=== PATIENT | female | born 1985 | race Caucasian/White ===

== ENCOUNTER 2017-06-29 09:15 | Emergency (ER) | payer OTHER ==
[~2017-06-29] VITALS: Ht 170.1 cm; Wt 86.2 kg
[~2017-06-29 09:15] MED LIST: ANTIVERT/2525 M1 PO; AUGMENTIN 875875 MG PO; CIPRO500 MG PO; DAILY VALUE1 EACH PO; DILANTIN; ESTRADIOL1 MG PO; FERREX 150150 MG PO; FERROUS SULFAT324 M1 PO; KEFLEX500 MG PO; Meclizine25 MG PO; PREDNISONE10 MG PO; SPRINTEC 35 MCG1 TA1 PO
[2017-06-29 10:03] LABS: BASO # 0.1 10*3/uL (0.0-0.1); BASO % 0.6 % (0.0-1.0); EOS # 0.1 10*3/uL (0.0-0.4); HEMATOCRIT 36.3 % (37.0-47.0); HEMOGLOBIN 12.2 g/dl (12.0-16.0); LYMPH # 1.6 10*3/uL (1.3-4.4); LYMPH % 19.8 % (27.0-41.0); MEAN CELL VOLUME 89.2 fl (81.0-99.0); MEAN CORPUSCULAR HGB CONC 33.6 g/dl (33.0-37.0); MEAN PLATELET VOLUME 11.5 fl (9.6-12.3); MONO # 0.4 10*3/uL (0.1-1.0); MONO % 4.7 % (3.0-9.0); NEUT # 6.1 10*3/uL (2.3-7.9); NEUT % 73.5 % (47.0-73.0); PLATELET COUNT AUTOMATED 294 10*3/uL (130-400); RED BLOOD COUNT 4.07 10*6/uL (4.10-5.10); RED CELL DISTRI WIDTH 12.4 % (0-14.5); WHITE BLOOD COUNT 8.3 10*3/uL (4.8-10.8)
[2017-06-29 10:19] LABS: ALBUMIN 3.3 gm/dl (3.1-4.5); ALKALINE PHOSPHATASE 55 U/L (45-117); BUN 15 mg/dl (7-24); CHLORIDE 107 mmol/L (98-107); CREATININE 0.85 mg/dL (0.55-1.02); POTASSIUM 3.4 mmol/L (3.5-5.1); SGOT/AST 11 IU/L (3-35); SGPT/ALT 17 U/L (12-78); SODIUM 141 mmol/L (136-145); TOTAL PROTEIN 7.1 gm/dL (6.4-8.2)
[2017-06-29] MEDS ORDERED: MECLIZINE HCL25 M2 PO (11:42)
[2017-06-29] MEDS ORDERED: ZOFRAN4 MG PO (11:42)
== END 2017-06-29 12:25 | disposition home or self-care (01) ==
LOC: ED 09:15
PROVIDERS: Nurse Practitioner Family
DX: R42 Dizziness and giddiness (principal); R03.0 Elevated blood-pressure reading, without diagnosis of hypertension; Z98.890 Other specified postprocedural states; Z79.899 Other long term (current) drug therapy

== ENCOUNTER 2018-06-17 13:54 | Emergency (ER) | payer OTHER ==
[~2018-06-17] VITALS: Ht 170.1 cm; Wt 90.7 kg
[~2018-06-17 13:54] MED LIST changes: +MECLIZINE HCL25 M2 PO; +ZOFRAN4 MG PO
[2018-06-17] MEDS ORDERED: MEDROL DOSEPAK4 MG PO (14:14)
== END 2018-06-17 14:22 | disposition home or self-care (01) ==
LOC: ED 13:54
DX: R21 Rash and other nonspecific skin eruption (principal); L29.9 Pruritus, unspecified

== ENCOUNTER 2020-09-05 11:58 | Emergency (ER) | payer OTHER ==
[~2020-09-05 11:58] MED LIST changes: +MEDROL DOSEPAK4 MG PO
[2020-09-05 12:44] LABS: BASO % 0.2 % (0.0-1.0); HEMATOCRIT 41.4 % (37.0-47.0); LYMPH # 0.7 10*3/uL (1.3-4.4); LYMPH % 16.7 % (27.0-41.0); MEAN CORPUSCULAR HGB 28.6 pg (27.0-31.0); MEAN CORPUSCULAR HGB CONC 32.9 g/dl (33.0-37.0); MEAN PLATELET VOLUME 10.6 fl (9.6-12.3); MONO # 0.3 10*3/uL (0.1-1.0); MONO % 7.7 % (3.0-9.0); NEUT # 3.3 10*3/uL (2.3-7.9); NEUT % 75.2 % (47.0-73.0); PLATELET COUNT AUTOMATED 275 10*3/uL (130-400); RED BLOOD COUNT 4.76 10*6/uL (4.10-5.10); RED CELL DISTRI WIDTH 12.5 % (0-14.5); WHITE BLOOD COUNT 4.4 10*3/uL (4.8-10.8)
[2020-09-05 12:59] LABS: ALKALINE PHOSPHATASE 63 U/L (45-117); BUN 10 mg/dl (7-24); CHLORIDE 108 mmol/L (98-107); CREATININE 0.78 mg/dL (0.55-1.02); POTASSIUM 3.7 mmol/L (3.5-5.1); SGOT/AST 25 IU/L (3-35); SGPT/ALT 28 U/L (12-78); SODIUM 136 mmol/L (136-145); TOTAL PROTEIN 7.7 gm/dL (6.4-8.2)
== END 2020-09-05 13:45 | disposition home or self-care (01) ==
LOC: ED 11:58
PROVIDERS: Student in an Organized Health Care Education/Training Program
DX: U07.1 COVID-19 (principal); R11.2 Nausea with vomiting, unspecified; R19.7 Diarrhea, unspecified; J45.909 Unspecified asthma, uncomplicated; Z79.899 Other long term (current) drug therapy

== ENCOUNTER → 2021-07-07 | Outpatient (CLI) | payer OTHER | END | disposition home or self-care (01) | LOC: RAD 13:21 | PROVIDERS: ATTEND Family Medicine | DX: R05.8 Other specified cough (principal) ==

== ENCOUNTER 2022-12-12 10:28 | Emergency (ER) | payer OTHER ==
[2022-12-12] MEDS ORDERED: IBU800 M2 PO (11:05)
== END 2022-12-12 11:34 | disposition home or self-care (01) ==
LOC: ED 10:28
DX: S20.212A Contusion of left front wall of thorax, initial encounter (principal); Z98.890 Other specified postprocedural states; W10.9XXA Fall (on) (from) unspecified stairs and steps, initial encounter; Y93.89 Activity, other specified; Y92.89 Other specified places as the place of occurrence of the external cause; Y99.8 Other external cause status

== ENCOUNTER 2023-06-07 22:21 | Emergency (ER) | payer OTHER ==
[~2023-06-07] VITALS: Ht 170.1 cm; Wt 104.3 kg
[~2023-06-07 22:21] MED LIST changes: +IBU800 M2 PO
[2023-06-08] MEDS ORDERED: MEDROL DOSEPAK4 MG PO (01:58)
[2023-06-08] MEDS ORDERED: ALBUTEROL2.5 MG/0.5 INH (01:58)
[2023-06-08] MEDS ORDERED: ZITHROMAX250 MG PO (01:58)
== END 2023-06-08 02:56 | disposition home or self-care (01) ==
LOC: ED 22:21
DX: J45.909 Unspecified asthma, uncomplicated (principal); R42 Dizziness and giddiness; D64.9 Anemia, unspecified; Z98.890 Other specified postprocedural states